=== PATIENT | male | born 2000 | race Caucasian/White ===

== ENCOUNTER 2020-05-19 11:08 | Emergency (ER) | payer OTHER, BC ==
[2020-05-19] MEDS ORDERED: Tetracaine HCl/PF 0.5% 4 ML Bottle EYEBOTH ONE (11:10)
[2020-05-19] MEDS ORDERED: Tetracaine HCl/PF 0.5% 4 ML Bottle ONE (11:11)
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
[2020-05-19] MEDS ORDERED: Diphtheria,Pertussis(Acell),Tetanus Vaccine 0.5 ML Syringe IM ONE (11:46)
[2020-05-19] MEDS ORDERED: Diphtheria,Pertussis(Acell),Tetanus Vaccine 0.5 ML Syringe ONE (11:49)
== END 2020-05-19 12:10 | disposition home or self-care (01) ==
LOC: MW.ED 11:08
DX: T54.2X1A Toxic effect of corrosive acids and acid-like substances, accidental (unintentional), initial encounter (principal); T20.50XA Corrosion of first degree of head, face, and neck, unspecified site, initial encounter; T26.92XA Corrosion of left eye and adnexa, part unspecified, initial encounter; T26.91XA Corrosion of right eye and adnexa, part unspecified, initial encounter; Z23 Encounter for immunization
CPT/HCPCS: 90471; 90715; 99283